=== PATIENT | female | born 1995 | race Caucasian/White ===

== ENCOUNTER 2020-09-18 00:10 | Day surgery (SDC) | payer BC, SELFPAY ==
[2020-09-04 10:23] VITALS: BMI 30.4
--- NOTE | 2020-09-17 13:00 | WPDANESEPPF ---
Anes - Initial Pre Proc Eval Procedure: Operation Date: 09/18/20 07:30 Proposed Procedures p Laparoscopic Bilateral Salpingectomy, Hysteroscopy with Genie Endometrial Ablation - Indigo Villagomez MD Date/Time: 09/17/20 13:00 Surgeon: Indigo Villagomez MD Pre Op Diagnosis: sterilization, menorrhaghia Patient Data Age: 24 Gender: F Height: 1.65 m Weight: 83 kg Allergies Allergy/AdvReac Type Severity Reaction Status Date / Time No Known Allergies Allergy Verified 09/18/20 06:24 Home Medications Medication Instructions Recorded Confirmed Type bupropion HCl 150 mg PO QAM 09/04/20 09/18/20 History escitalopram oxalate 20 mg PO QAM 09/04/20 09/18/20 History verapamil 120 mg PO QAM 09/04/20 09/18/20 History Patient hx anesthesia problems: none Family hx anesthesia problems: none [facility] Past Medical History Medical History (Updated 09/17/20 @ 12:58 by Gerardo Fountain MD) Anxiety Depression Migraine Social History Social History Smoking status: Never smoker Substance use: never Spiritual care concerns: No Anes - Eval Final PreProcedure Day of Procedure 09/17/20 13:00 Patient weight: obese Heart: regular rate and rhythm Lungs: clear to auscultation Airway: Mallampati scale class III Neurological: alert and oriented Last oral intake: >/= 8 hours ASA classification: III Emergent: no Anesthetic plan: proceed Anesthesia type and monitoring: general GIVS and standard monitoring Informed Consent: The patient's anesthetic plan and its attendant risks and benefits were discussed with the patient/family/POA. Questions were solicited and answers provided to the satisfaction of the patient/family/POA.
[2020-09-18] VITALS (10 sets, daily range): BP systolic 102–129; BP diastolic 55–81; PULSE 67–95; RESP 12–20; TEMP 36.1–36.4; O2SAT 96–100
[2020-09-18] MEDS: KETOROLAC 15 MG/ML VIAL (*BKC) IV PUSH (06:14)
[2020-09-18] MEDS: ACETAMINOPHEN 500 MG TABLET 1000 MG PO (06:14)
[2020-09-18] MEDS: LACTATED RINGERS 1,000 ML 30 ML IV CONT ×2 (06:14→08:19)
--- NOTE | 2020-09-18 07:15 | WPDHPUPDATE1 ---
History and Physical Update Update Date/Time: 09/18/20 07:15 History and Physical has been reviewed, including an updated exam of the patient. There are NO changes in the patient's condition. Risks, benefits, and alternatives have been discussed and questions answered. Patient agrees to proceed with procedure.
[2020-09-18] MEDS: ONDANSETRON INJ 4 MG/2 ML VIAL IV PUSH (08:39)
--- NOTE | 2020-09-18 08:39 | W.PM.PROC2 ---
Procedure Note - Detailed Date of Procedure 09/18/20 Pre-op Diagnosis sterilization, menorrhaghia Post-op Diagnosis same Procedure Performed Laparoscopic bilateral salpingectomy, hysteroscopy with failed endometrial ablation Surgeon Indigo Villagomez MD Anesthesia general Indications Unwanted fertility, severe menorrhagia Findings Normal appearing ovaries, fallopian tubes, uterus. Normal vulva vagina and cervix. Normal endometrium. Description of Procedure The patient dissect the operating room. She has prepped draped in the dorsal lithotomy position after induction of general anesthesia. The 5 mm left upper quadrant incision was made with a scalpel. A 5 mm trocar was inserted into the intra-abdominal cavity under direct visualization the scope. Pneumoperitoneum was achieved. A 5 mm left lower quadrant incision was made in the skin with a scalpel. A 5 mm trocar was inserted the intra-abdominal cavity under direct visualization the scope. A 5 mm infraumbilical incision was made with scalp on a 5 mm trocar was inserted intra-abdominal cavity under direct visualization of the scope. The bilateral fallopian tubes were removed. The mesosalpinx of the fallopian tube was cauterized from the ovary in a stepwise fashion using LigaSure cautery. It was cut and cauterized in stepwise fashion around to the corneal part of the uterus and fallopian tube. The tube was transected there in amputated. This was done with LigaSure cautery. The tube was taken at the left lower quadrant trocar site. The contralateral side was done in identical fashion. The patient tolerated this portion of the procedure well. The incisions were closed subcuticular for Monocryl and with Dermabond. A speculum was placed in the vagina. Cervix grasped with a tenaculum. The cervix was dilated to about 1 cm. The hysteroscope was inserted. The above findings were noted. Measurements were taken of the uterus and cervix. The uterine length was then entered into the hand piece of the Genie device. The device was inserted into the intrauterine cavity. The array of the device was expanded. The balloon cuff was inflated. A good seal was NOT achieved. The energy and safety cycles were initiated, but could not be completed. The array was collapsed and the instrument was withdrawn after deflating the balloon cuff. The procedure was abandoned. Hysteroscope was reinserted. Above findings were noted. The hysteroscope was removed. The patient tolerated the procedure well. The speculum and tenaculum were removed. She was taken to recovery in stable condition. Sponge lap and needle counts were correct x2. Estimated Blood Loss 15
[2020-09-18] MEDS: diphenhydrAMINE HCl INJ 50 MG/ML VIAL 25 MG IV PUSH (08:44)
[2020-09-18] MEDS: HALOPERIDOL LACTATE 5 MG/ML VIAL IV PUSH (09:06)
[2020-09-18] MEDS: oxyCODONE HCL (*CRX) 5 MG TAB IR PO (10:00)
== END 2020-09-18 10:28 | disposition home or self-care (01) ==
PROVIDERS: Visit Provider Obstetrics & Gynecology
PROC: 0UDB8ZZ Extraction of Endometrium, Via Natural or Artificial Opening Endoscopic (ICD-10-PCS; CPT 58558; principal; 2020-09-18 07:30)
DX: Z30.2 Encounter for sterilization (principal); N92.0 Excessive and frequent menstruation with regular cycle; F41.8 Other specified anxiety disorders; E66.9 Obesity, unspecified; Z68.32 Body mass index [BMI] 32.0-32.9, adult
CPT/HCPCS: 58661; 58563; 88302; 88305; A9270; J1100; J1200; J1630; J1885; J2250; J2405; J2704; J2710; J3010; J7030; J7120

== ENCOUNTER 2023-08-11 12:19 | Outpatient (CLI) | payer BC, SELFPAY | END 2023-08-11 12:20 | disposition home or self-care (01) | LOC: ANHSURGERY 12:26 | PROVIDERS: Visit Provider Obstetrics & Gynecology | DX: Z01.818 Encounter for other preprocedural examination (principal); N92.0 Excessive and frequent menstruation with regular cycle | CPT/HCPCS: 36415; 86850; 86900; 86901 ==

== ENCOUNTER 2023-08-18 01:23 | Day surgery (SDC) | payer BC, SELFPAY ==
[2023-08-10 14:13] VITALS: BMI 29.9
--- NOTE | 2023-08-10 14:28 | SUR.PREOP ---
Report to the Outpatient Waiting Room, entrance under the green pavilion located off [facility], at time 0700 on date 08/18/23. Planned Procedure Time: 0900. Time changes happen often and if your time is changed the preop area will call you the afternoon before. - You and your visitor will be asked to self-screen and do not enter if you have any COVID symptoms. - A mask is optional within the hospital at this time. Patients may have clear liquids (water, carbonated beverages, clear teas, apple juice) until 3 hours prior to surgery with a maximum of 20 ounces. - No food from midnight until time of surgery before 0600 am - Infants may have breast milk until 4 hours before surgery, infant formula 6 hours prior to surgery. - Children will be allowed to drink immediately following surgery. If applicable, please bring a bottle or sippy cup to assist with drinking. Juice, water, soda, and popsicles are readily available. For infants on formula, please bring formula the day of surgery. Pacifiers are allowed. Take the following medications with a SIP of water the morning of surgery: __n/a DO NOT STOP ANY OF YOUR OTHER PRESCRIPTION MEDICATIONS PRIOR TO SURGERY ?EXCEPT THE FOLLOWING Medications to discontinue per physician n/a Date to take last dose Please no make-up, nail english, hairspray, perfume, deodorant, or body powder the day of surgery. No jewelry (including any body piercings) or valuables the day of surgery, leave them at home. Please take a shower or bath the night before, or the morning of, surgery with an antibacterial soap. Wear comfortable, loose fitting clothing. Children are encouraged to wear pajamas. - Jewelry must be removed prior to entering the operating room. Rings and piercings that are not removed may be cut off. - The hospital will not accept responsibility for valuables. - Please leave all valuables, including medications, at home the day of surgery. If you are going home after surgery, a licensed box truck driver must drive you home. - NO public transportation without another adult if you receive anesthesia. - We recommend that an adult stay with you for 24 hours following discharge. - We also recommend that you do not drive, make important decision, drink alcoholic beverages, or take any drugs that were not prescribed by your health care provider for at least 24 hours after your discharge time. For Pediatric surgeries, we recommend two adults accompany the child home. Follow any additional instructions given to you from your surgeon. If you or anyone in your household have experienced Covid symptoms in the past week, please notify your surgeon or the nurse liaison at the phone number below for possible testing. Telephone instructions given to __patient___and asked if any additional questions and then verbalized understanding. Patient advised to call surgeon office or pre surgery nurse liaison [phone] if any additional questions.
[2023-08-18] VITALS (15 sets, daily range): BP systolic 99–126; BP diastolic 60–80; PULSE 70–100; RESP 16–20; TEMP 36.4–37.5; O2SAT 96–100
--- NOTE | ~2023-08-18 | XR_ITS ---
EXAMINATION: XR abdomen/kub 1V DATE: 08/18/2023 14:53 INDICATION: Left ureteral stent placement. TECHNIQUE: A supine view of the abdomen was obtained. COMPARISON: None. FINDINGS: There are no dilated loops of bowel. There is a left internal ureteral stent in expected po sition. IMPRESSION: 1. Left internal ureteral stent in expected position. Reviewed, dictated and finalized at location A.
[2023-08-18] MEDS: KETOROLAC 15 MG/ML VIAL (*BKC) IV PUSH (08:37)
[2023-08-18] MEDS: ACETAMINOPHEN 500 MG TABLET 1000 MG PO (08:37)
[2023-08-18] MEDS: LACTATED RINGERS 1,000 ML 30 ML IV CONT ×3 (08:45→13:59)
--- NOTE | 2023-08-18 08:51 | P.PNAN_ITS ---
Anes - Initial Pre Proc Eval Procedure: Operation Date: 08/18/23 09:30 Proposed Procedures p Total Laparoscopic Hysterectomy - Ced Villagomez MD Date/Time: 08/18/23 08:51 Surgeon: Ced Villagomez MD Pre Op Diagnosis: Menorrhagia Patient Data Age: 27 Gender: F Height: 1.65 m Weight: 81.65 kg Allergies Allergy/AdvReac Type Severity Reaction Status Date / Time azithromycin [From Zithromax] Allergy Severe Swelling Verified 08/18/23 08:27 of Lip/Tongue/Throat Home Medications Medication Instructions Recorded Confirmed Type No Home Medications 08/10/23 08/18/23 History Patient hx anesthesia problems: none Family hx anesthesia problems: none Results Review: All pre-operative results and documents have been reviewed as part of the pre- operative evaluation. [facility]LY [facility] Past Medical History Medical History Anxiety Depression Migraine Surgical History Surgical History (Updated 08/18/23 @ 08:52 by Alirio Cheng MD) History of tubal ligation Social History Social History Smoking status: Never smoker Substance use: never Living arrangements: with family Spiritual care concerns: No Anes - Eval Final PreProcedure Day of Procedure 08/18/23 08:51 Patient weight: obese Heart: regular rate and rhythm Lungs: clear to auscultation Airway: Mallampati scale class II Neurological: alert and oriented Last oral intake: >/= 8 hours ASA classification: II Emergent: no Anesthetic plan: proceed Anesthesia type and monitoring: general ETT and standard monitoring Results Review: All pre-operative results and documents have been reviewed as part of the pre- operative evaluation. Informed Consent: The patient's anesthetic plan and its attendant risks and benefits were discussed with the patient/family/POA. Questions were solicited and answers provided to the satisfaction of the patient/family/POA.
--- NOTE | 2023-08-18 09:10 | WPDHPUPDATE1 ---
History and Physical Update Update Date/Time: 08/18/23 09:10 History and Physical has been reviewed, including an updated exam of the patient. There are NO changes in the patient's condition. Risks, benefits, and alternatives have been discussed and questions answered. Patient agrees to proceed with procedure.
[2023-08-18] MEDS: ceFAZolin 2 GM/D5W 50 ML 2 GM/50 ML BAG IVPB (09:43)
[2023-08-18] MEDS: ceFAZolin SODIUM 1 GM VIAL (09:43)
--- NOTE | 2023-08-18 12:26 | P.OP_ITS ---
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 Dissection had been performed adjacent to the left ureter and there was concern for potential ureteral injury. Description of Procedure We performed rigid cystoscopy and careful inspection of the bladder. Methylene blue was seen exiting the right ureteral orifice. There was no drainage from the left ureteral orifice. We then placed a Sensor wire through the left ureteral orifice which passed easily and a 5 F open-ended catheter. At this point we then performed diagnostic laparoscopy and inspection of the left pelvis we could see the ureter had been skeletonized for a length of approximately 2 to 3 cm, where we were able to see the stent in place with mucosal covering throughout. There was no transection or mucosal violation of the ureter, therefore we elected to place stent and not perform reconstruction. Over the wire a 6 F variable length stent was placed. A curl was seen in the bladder. The stent passed easily. As there was no fluoroscopy available in the operating room, we elected to perform a KUB in recovery room to ensure appropriate stent placement. The case was turned back over to Dr. Villagomez.
[2023-08-18] MEDS: ONDANSETRON INJ 4 MG/2 ML VIAL IV PUSH ×2 (12:59→18:38)
--- NOTE | 2023-08-18 13:06 | W.PM.PROC2 ---
Procedure Note - Detailed Date of Procedure 08/18/23 Pre-op Diagnosis Menorrhagia Post-op Diagnosis Same Procedure Performed total laparoscopic hysterectomy Surgeon Ced Villagomez MD Anesthesia General Description of Procedure This patient was taken to the operating room. She was prepped and draped in the dorsal lithotomy position after induction of general anesthesia. The uterine manipulator and Bhavin cup were placed. This was done with a speculum and tenaculum. The speculum was placed. The cervix was grasped with a tenaculum. The stay sutures were placed at 3 and 9:00 a.m.. The stay sutures of 0 Vicryl were brought through the appropriately sized Bhavin cup. The tip of the OCHOA manipulator was placed in the intrauterine cavity. The cup was slid into place around the cervix and into the fornices. It was locked into place. The sutures were then wrapped around the handle and tied under tension. A 5 mm skin incision was made in the left upper quadrant the abdomen. A 5 mm trocar was inserted into the intrauterine cavity under direct visualization of the scope. Pneumoperitoneum was achieved. A left lower quadrant 11 mm incision was made with scalpel. An 11 mm trocar was inserted into the anterior abdominal cavity under direct visualization the scope. A 5 mm infraumbilical incision was made with a scalpel and a 5 mm trocar was inserted the intra-abdominal cavity under direct visualization of the scope. Bilateral ureteral lysis was performed. This was done from the pelvic brim down to the uterine artery. This was done with careful dissection using sharp and blunt dissection. In a stepwise fashion along the lateral aspects of the uterus the Suspensory ligament of the ovary, round ligament and broad ligaments were cauterized transected down to the level of the uterine arteries. A bladder flap was created in the bladder was moved distally to the end of the cervix and over the Bhavin cup. The bilateral uterine arteries were cauterized and transected. Colpotomy was then performed. In a circumferential fashion the vagina was transected using unipolar cautery. The incision was made down on the Bhavin cup. when the colpotomy was completed, the uterus and cervix were taken out through the vagina. A pneumo occluder was placed in the vagina. The vaginal cuff was closed with a 0 V lock suture in a running fashion. The pelvis was irrigated with copious amounts antibiotic irrigation. The ureters were again examined and found to be intact and flowing freely under the uterine arteries into the bladder. The bladder was intact. It was examined directly. Cystoscopy was performed after administration of methylene blue. The cystoscope was inserted. Bladder was distended with fluid. The ureteric meatus was observed bilaterally. Blue fluid was seen to egress Only from the right ureter. Return to the laparoscopic aspect delivered procedure procedure. The ureter was examined. The pelvis was covered with the Surgicel powder. Was applied at the end of the hysterectomy. The ureter on the left was covered with a dark tissue. More dissection was performed. To expose the ureter. This exposed beyond the uterine artery. The vaginal cuff closure was revised. The stitch on the left after the pelvis was removed. It was replaced with a new more conservative placed stitch. The difference in the placement of the sutures from the 1st were marginally different. Cystoscopy was repeated. Again no blue fluid egressed from the left ureter. Urology was called. They came and quickly and easily placed a cyst dent in the left ureter. Wire, catheter, stent all past without problems. We could be visualized in the pelvis laparoscopically. It did appear to be excessively thinned at the most distal part of the ureter near the bladder. Dr. Harvey elected to keep the stent in place for 6 weeks. Again, abdominal incisions were closed with 4 Monocryl covered with Dermabond.
[2023-08-18] MEDS: SCOPOLAMINE 1 MG PATCH 1 PATCH TRANSDERM (13:15)
[2023-08-18] MEDS: diphenhydrAMINE HCl INJ 50 MG/ML VIAL 25 MG IV PUSH (13:16)
[2023-08-18] MEDS: PROMETHAZINE HCL 25 MG/ML AMPUL 12.5 MG IV PUSH (14:19)
--- NOTE | 2023-08-18 15:23 | ADMGEN ---
1510-This patient, Zainab Novak, was admitted to OB 2nd Floor Room 289-00. Patient/family oriented to hospital policies and general routines including ID bracelet, bed and alarms, visiting hours, pain management, procedures, bathroom and other care routines, personal items, smoking policy, room service/diet, and visiting hours. Information on how to activate the Rapid Response Team has been discussed. Patient/Family are encouraged to report perceived risks to care and to ask questions if they do not understand what they are told or what they should do.
[2023-08-18] MEDS: DEXTROSE 5%/0.45% SOD CHL 1,000 ML 125 ML IV CONT ×2 (15:28→23:51)
[2023-08-18] MEDS: KETOROLAC 30 MG/ML VIAL (*BKC) IV PUSH ×2 (15:54→22:11)
[2023-08-18] MEDS: SIMETHICONE 80 MG TAB.CHEW PO (17:06)
[2023-08-18] MEDS: fentaNYL CITRATE INJ (*CRX) 100 MCG/2 ML VIAL 50 MCG IV PUSH ×2 (18:53→20:44)
[2023-08-18] MEDS: METOCLOPRAMIDE HCL INJ 10 MG/2 ML VIAL IV PUSH (22:11)
[2023-08-19 04:09] VITALS: BP 101/55; PULSE 93; RESP 18; TEMP 38.6; O2SAT 99
[2023-08-19] MEDS: KETOROLAC 30 MG/ML VIAL (*BKC) IV PUSH (04:12)
--- NOTE | 2023-08-19 07:50 | PM.GYNPNOP ---
BEEF GRADER - A/P Postoperative Procedures: Procedures Operation Date: 08/18/23 09:30 Actual Procedure Side Surgeon p Total Laparoscopic Hysterectomy, cystoscopy with stent placement Not Applicable Ced Villagomez MD Postoperative day: 1 Postoperative status: doing well and other (Tollerating Regular Diet) Postoperative plan: routine post-op care ( Excessive ureter skeletonization, to have stent for 6 weeks.) and discharge Time Spent With Patient Time: Total time spent is greater than 50% in coordination of care (as documented) at patient's floor/unit and/or counseling patient: Time with patient: 15 - 25 minutes BEEF GRADER- PN:Subj Post-Op Subjective Date/time seen: 08/19/23 07:50 Subjective: patient reports feeling better, pain is well controlled and patient is tolerating oral intake Exam Const: General: cooperative, healthy appearing, comfortable and no acute distress Resp: Auscultation: no crackles, no rales, no rhonchi and no wheezes Cardio: Rhythm: regular rhythm Heart sounds: no click and no murmurs GI: Inspection: non-distended Auscultation: normal bowel sounds Other: Incisions - CDI Extrem: General: normal to inspection, no pedal edema and no calf tenderness BEEF GRADER - PN: Obj Data Vital Signs Vital Signs: Vital Signs - 24 hr 08/18/23 12:45 08/18/23 13:00 08/18/23 13:15 Temperature 98.3 F Pulse Rate 92 100 100 Respiratory Rate 18 20 20 Blood Pressure 126/65 120/62 114/60 Pulse Oximetry 100 97 96 Oxygen Delivery Simple Face Mask Room Air Room Air Oxygen Flow Rate 8 08/18/23 13:30 08/18/23 13:45 08/18/23 14:00 Temperature Pulse Rate 97 89 94 Respiratory Rate 20 20 20 Blood Pressure 113/60 113/61 110/66 Pulse Oximetry 98 99 99 Oxygen Delivery Room Air Room Air Room Air Oxygen Flow Rate 08/18/23 14:15 08/18/23 14:30 08/18/23 14:45 Temperature Pulse Rate 91 86 85 Respiratory Rate 18 18 20 Blood Pressure 109/69 109/66 107/65 Pulse Oximetry 100 100 100 Oxygen Delivery Room Air Room Air Room Air Oxygen Flow Rate 08/18/23 15:00 08/18/23 15:15 08/18/23 15:20 Temperature 97.5 F L Pulse Rate 84 81 81 Respiratory Rate 18 16 16 Blood Pressure 106/63 110/65 Pulse Oximetry 100 100 100 Oxygen Delivery Room Air Room Air Oxygen Flow Rate 08/18/23 20:00 08/18/23 23:57 08/19/23 04:09 Temperature 97.8 F 99.5 F 101.5 F H Pulse Rate 70 77 93 Respiratory Rate 16 16 18 Blood Pressure 99/62 L 109/64 101/55 L Pulse Oximetry 98 100 99 Oxygen Delivery Oxygen Flow Rate Intake/Output Intake/Output: Intake & Output 08/16/23 08/17/23 08/18/23 08/19/23 23:59 23:59 23:59 23:59 Intake Total 2100.0 Output Total 650 900 Balance 1450.0 -900 Meds/Results Medications: Active Medications Generic Name Dose Route Start Last Admin Trade Name Freq PRN Reason Stop Dose Admin Hydrocodone Bitart/Acetaminophen 1 tab 08/18/23 15:03 Hydrocodone/Acetaminophen (*Crx) 5-325 Mg Tablet PO Q3H PRN Pain Rated 5 or Less Hydrocodone Bitart/Acetaminophen 1 tab 08/18/23 15:03 Hydrocodone/Acetaminophen (*Crx) 10-325 Mg Tablet PO Q3H PRN Pain Rated 6 or Greater Fentanyl Citrate 50 mcg 08/18/23 18:43 08/18/23 20:44 Fentanyl Citrate Inj (*Crx) 100 Mcg/2 Ml Vial IV PUSH 50 mcg Q1H PRN Administration Breakthrough Pain Dextrose/Sodium Chloride 1,000 mls @ 125 mls/hr 08/18/23 15:03 08/18/23 23:51 Dextrose 5% Sodium Chloride 0.45% IV CONT 125 mls/hr .Q8H KIMBERLY Administration Ibuprofen 600 mg 08/18/23 15:03 Ibuprofen 600 Mg Tablet PO Q6H PRN Cramping Ketorolac Tromethamine 30 mg 08/18/23 15:03 08/19/23 04:12 Ketorolac 30 Mg/Ml Vial (*Bkc) IV PUSH 08/23/23 15:02 30 mg Q6H PRN Administration Pain Rated 4-6 Metoclopramide HCl 10 mg 08/18/23 22:02 08/18/23 22:11 Metoclopramide Hcl Inj 10 Mg/2 Ml Vial IV PUSH 10 mg Q6HR PRN Administration Nausea Naloxone HCl 0.1 mg
[2023-08-19] MEDS: SIMETHICONE 80 MG TAB.CHEW PO (08:26)
[2023-08-19 09:00] VITALS: BP 108/65; PULSE 105; RESP 16; TEMP 36.8; O2SAT 100
--- NOTE | 2023-08-19 10:04 | WPDUROPN2 ---
Progress Note: A&P Assessment and Plan (1) Left ureteral injury: Code(s): S37.10XA - Unspecified injury of ureter, initial encounter Status: Acute Assessment and Plan: Noted to have left ureteral injury at time ovarian cystectomy procedure. Patient underwent cystoscopy, left ureteral stent placement, and diagnostic laparoscopy on 08/18/[address] Martínez. She tolerated this procedure well. Postoperative KUB showed left internal ureteral stent in expected position. Will plan for outpatient stent removal in 6 weeks. Okay for Anderson removal from urologic standpoint. Subjective Subjective Date/Time Seen: 08/19/23 10:04 Interval history: Zainab is feeling well today. She has no concerns. Denies any stent discomfort. Tolerating her Anderson catheter which is draining clear yellow urine. She is eager for discharge home later today. Review of Systems Review of Systems: All systems reviewed & are unremarkable except as noted in HPI and below Exam Narrative: General: Awake, alert, comfortable, no acute distress HEENT: Normocephalic, atraumatic, sclerae anicteric Respiratory: Normal respiratory effort, no accessory muscle use Abdomen: Nondistended, soft, nontender : Anderson catheter draining clear yellow urine Skin: Normal coloration, warm and dry Neurologic: No focal neuro deficits noted Psychiatric: Appropriate mood and affect, judgment and insight intact Objective Data Vital Signs Vital Signs: Vital Signs - 24 hr 08/18/23 12:45 08/18/23 13:00 08/18/23 13:15 Temperature 98.3 F Pulse Rate 92 100 100 Respiratory Rate 18 20 20 Blood Pressure 126/65 120/62 114/60 Pulse Oximetry 100 97 96 Oxygen Delivery Simple Face Mask Room Air Room Air Oxygen Flow Rate 8 08/18/23 13:30 08/18/23 13:45 08/18/23 14:00 Temperature Pulse Rate 97 89 94 Respiratory Rate 20 20 20 Blood Pressure 113/60 113/61 110/66 Pulse Oximetry 98 99 99 Oxygen Delivery Room Air Room Air Room Air Oxygen Flow Rate 08/18/23 14:15 08/18/23 14:30 08/18/23 14:45 Temperature Pulse Rate 91 86 85 Respiratory Rate 18 18 20 Blood Pressure 109/69 109/66 107/65 Pulse Oximetry 100 100 100 Oxygen Delivery Room Air Room Air Room Air Oxygen Flow Rate 08/18/23 15:00 08/18/23 15:15 08/18/23 15:20 Temperature 97.5 F L Pulse Rate 84 81 81 Respiratory Rate 18 16 16 Blood Pressure 106/63 110/65 Pulse Oximetry 100 100 100 Oxygen Delivery Room Air Room Air Oxygen Flow Rate 08/18/23 20:00 08/18/23 23:57 08/19/23 04:09 Temperature 97.8 F 99.5 F 101.5 F H Pulse Rate 70 77 93 Respiratory Rate 16 16 18 Blood Pressure 99/62 L 109/64 101/55 L Pulse Oximetry 98 100 99 Oxygen Delivery Oxygen Flow Rate 08/19/23 09:00 Temperature 98.3 F Pulse Rate 105 H Respiratory Rate 16 Blood Pressure 108/65 Pulse Oximetry 100 Oxygen Delivery Oxygen Flow Rate Intake/Output Intake/Output: Intake & Output 08/16/23 08/17/23 08/18/23 08/19/23 23:59 23:59 23:59 23:59 Intake Total 2100.0 1000 Output Total 650 1350 Balance 1450.0 -350 Meds/Results Medications: Active Medications Generic Name Dose Route Start Last Admin Trade Name Freq PRN Reason Stop Dose Admin Hydrocodone Bitart/Acetaminophen 1 tab 08/18/23 15:03 Hydrocodone/Acetaminophen (*Crx) 5-325 Mg Tablet PO Q3H PRN Pain Rated 5 or Less Hydrocodone Bitart/Acetaminophen 1 tab 08/18/23 15:03 Hydrocodone/Acetaminophen (*Crx) 10-325 Mg Tablet PO Q3H PRN Pain Rated 6 or Greater Fentanyl Citrate 50 mcg 08/18/23 18:43 08/18/23 20:44 Fentanyl Citrate Inj (*Crx) 100 Mcg/2 Ml Vial IV PUSH 50 mcg Q1H PRN Administration Breakthrough Pain Dextrose/Sodium Chloride 1,000 mls @ 125 mls/hr 08/18/23 15:03 08/19/23 08:24 Dextrose 5% Sodium Chloride 0.45% IV CONT Not Given .Q8H KIMBERLY Ibuprofen 600 mg 08/18/23 15:03 Ibuprofen 600 Mg Tablet PO Q6H PRN Cramping
== END 2023-08-19 11:25 | disposition home or self-care (01) ==
LOC: ANHSURGERY 07:03 → ANHOB2 15:08
PROVIDERS: Visit Provider Obstetrics & Gynecology
PROC: 0UT9FZZ Resection of Uterus, Via Natural or Artificial Opening With Percutaneous Endoscopic Assistance (ICD-10-PCS; CPT 58570; principal; 2023-08-18 09:30)
DX: N92.0 Excessive and frequent menstruation with regular cycle (principal); N99.81 Other intraoperative complications of genitourinary system; N28.89 Other specified disorders of kidney and ureter; N72 Inflammatory disease of cervix uteri; N87.9 Dysplasia of cervix uteri, unspecified
CPT/HCPCS: 52332; 58570; 74018; 88307; 99199; A9270; C1758; C1769; C2617; J0690; J1100; J1170; J1200; J1885; J2250; J2405; J2550; J2704; J2765; J3010; J7030; J7120; Q9968